=== PATIENT | male | born 1990 | race Caucasian/White ===

== ENCOUNTER → 2019-08-13 08:17 | Outpatient (BNVA) | payer OTHER, SELFPAY | PROVIDERS: Visit Provider Registered Nurse | DX: R23.8 Other skin changes (principal) | CPT/HCPCS: 80053; 80061; 83036 ==

== ENCOUNTER → 2021-03-19 09:46 | Outpatient (BNVA) | payer OTHER, SELFPAY | PROVIDERS: Visit Provider Nurse Practitioner Family | DX: Z20.822 Contact with and (suspected) exposure to COVID-19 (principal) | CPT/HCPCS: 87635 ==